=== PATIENT | male | born 1990 | race Two or more races ===

== ENCOUNTER 2023-12-09 10:55 | Emergency (ER) | payer OTHER ==
[~2023-12-09] VITALS: Ht 172.7 cm; Wt 86.2 kg
[2023-12-09] MEDS ORDERED: HYDROCORTISON28.4 G9 TOP (13:07)
== END 2023-12-09 13:36 | disposition home or self-care (01) ==
LOC: ER 10:57
DX: T63.441A Toxic effect of venom of bees, accidental (unintentional), initial encounter (principal); Y92.89 Other specified places as the place of occurrence of the external cause; Z87.09 Personal history of other diseases of the respiratory system